=== PATIENT | female | born 1950 | race Caucasian/White ===

== ENCOUNTER 2023-01-15 09:50 | Outpatient (CLI) | payer OTHER, SELFPAY | END 2023-01-15 09:51 | disposition home or self-care (01) | PROVIDERS: PCP Neuromusculoskeletal Medicine & OMM; Visit Provider Neuromusculoskeletal Medicine & OMM | DX: R94.31 Abnormal electrocardiogram [ECG] [EKG] (principal); I34.0 Nonrheumatic mitral (valve) insufficiency | CPT/HCPCS: 93306 ==

== ENCOUNTER 2023-10-15 18:37 | Emergency (ER) | payer OTHER, SELFPAY ==
[2023-10-15 18:44] VITALS: BP 125/60; PULSE 86; RESP 24; TEMP 36.3; O2SAT 98; BMI 19.1
--- NOTE | 2023-10-15 19:00 | ED.GENADULT ---
HPI - General Adult General Chief complaint: Arrhythmia/Palpitations Stated complaint: elevated HR Time Seen by Provider: 10/15/23 18:41 History of Present Illness HPI narrative: reports that she has been restricting her diet since Wednesday night due to having pain on the right Abd-back area. she did this as she was thinking it was her gallbladder. today noticed that her heart was beating fast with palpitations was greater than 146 per pulse oximeter. felt that it was irregular. did feel lightheaded at that time. is concerned about having gallbladder problems or electrolyte imbalance. 72-year-old woman presenting to the emergency department with concern of rapid heart rate. She has been struggling with mental health and has been experiencing some weight loss. Over the last 4 days has been having right upper abdominal area she says right up under her ribs and then radiating to the back. She did some reading thinking maybe it was her gallbladder. Did finally take some ibuprofen last night and woke feeling much better. Today though her heart then suddenly began beating really fast. Wondered if it might be irregular. [place] little lightheaded. Does endorse underlying history of PTSD as well. Family member suggested that might have electrolytes being off as well considering that she had been restricting her diet. No fever. No vomiting. No diarrhea. Related Data Home Medications ?Medication ?Instructions ?Recorded ?Confirmed Natural Remedies PO DAILY 01/26/23 magnesium oxide 400 mg (241.3 mg 200 mg PO DAILY 01/26/23 01/26/23 magnesium) tablet vitamin B complex-folic acid 0.4 1 tab PO QDAY 01/26/23 01/26/23 mg tablet (B Complex 1 (with folic acid)) Allergies Allergy/AdvReac Type Severity Reaction Status Date / Time coffee (Coffea arabica) Allergy Intermediate Verified 01/26/23 10:57 casein Allergy Verified 01/26/23 10:57 gluten Allergy Verified 01/26/23 10:57 Review of Systems Status of ROS: Reports: 6 or more systems reviewed and unremarkable except as noted in History and below [facility] Surgical History History of phacoemulsification of cataract of both eyes with intraocular lens implantation ?Z98.41 - Cataract extraction status, right eye (ICD-10) ?Z98.42 - Cataract extraction status, left eye (ICD-10) ?Z96.1 - Presence of intraocular lens (ICD-10) Family History Mother Heart failure Fragile X syndrome Social History What is your current living situation?: I presently have a place to live Problems where you live: no known problems In the past 12 months, utilities in danger of being shut off: no In past 12 months, lack of transportation kept you from medical appts, meetings, work, or getting things needed for daily living: no In the past 12 mos, have been you worried that your food would run out before you had money to buy more?: never true In the past 12 mos, the food you bought just didn't last and you didn't have money to buy more?: never true Non-prescribed substance use: denies use How often does anyone, including family, friends and others, physically hurt you: never How often does anyone, including family, friends and others, insult or talk down to you: never How often does anyone, including family, friends and others, threaten you with harm: never How often does anyone, including family, friends and others, scream or curse at you: never Little interest or pleasure in doing things: not at all Feeling down, depressed, or hopeless: not at all Exam Narrative: Exam Narrative: Pleasant. Appears tired. Thin. Skin is warm and dry. Well-perfused peripherally without edema. Oropharynx is moist. Lungs are clear. Heart in regular rate and rhythm without murmur rub or gallop. Abdomen is soft. No masses appreciated. She is moderately tender in the right upper abdomen under the rib margin. Moving all extremities without difficulty. Const: Vital Signs, click to edit/add: Vital Signs - 24 hr 10/15/23 18:44 10/15/23 20:04 10/15/23 20:15 Temperature 97.3 F L Pulse Rate 71 72 Pulse Rate [Pulse Oximeter] 86 Respiratory Rate 24 Blood Pressure [Le ft Upper Arm] 125/60 Pulse Oximetry 98 98 98 Oxygen Delivery Me thod Room Air 10/15/23 20:30 10/15/23 20:45 10/15/23 21:00 Temperature Pulse Rate 71 70 71 Pulse Rate [Pulse Oximeter] Respiratory Rate Blood Pressure [Le ft Upper Arm] Pulse Oximetry 98 98 97 Oxygen Delivery Me thod Documenting provider has reviewed patient's vital signs: yes Course Vital Signs Vital signs: Initial Vital Signs Temperature 97.3 F L 10/15/23 18:44 Temperature Source Temporal Artery Scan 10/15/23 18:44 Pulse Rate 86 10/15/23 18:44 Pulse Rhythm Regular 10/15/23 18:44 Respiratory Rate 24 10/15/23 18:44 Blood Pressure 125/60 10/15/23 18:44 Blood Pressure Mean 81 10/15/23 18:44 Blood Pressure Position Supine 10/15/23 18:44 Pulse Oximetry 98 10/15/23 18:44 Oxygen Delivery Method Room Air 10/15/23 18:44 Vital Signs Temperature 97.3 F L 10/15/23 18:44 Pulse Rate 86 10/15/23 18:44 Respiratory Rate 24 10/15/23 18:44 Blood Pressure 125/60 10/15/23 18:44 Pulse Oximetry 98 10/15/23 18:44 Oxygen Delivery Method Room Air 10/15/23 18:44 Temperature 97.3 F L 10/15/23 18:44 Pulse Rate 71 10/15/23 21:00 Respiratory Rate 24 10/15/23 18:44 Blood Pressure 125/60 10/15/23 18:44 Pulse Oximetry 97 10/15/23 21:00 Oxygen Delivery Method Room Air 10/15/23 18:44 Medications Administered Medications: Discontinued Medications Generic Name Dose Route Start Last Admin Trade Name Freq PRN Reason Stop Dose Admin Sodium Chloride 1,000 mls @ 1,000 mls/hr 10/15/23 19:06 10/15/23 21:00 0.9 % Sodium Chloride 1000 Ml IV 10/15/23 20:05 Infused .Q1H ONE Infusion Medical Decision Making MDM Narrative Medical decision making narrative: Certainly could have underlying gallbladder disease which has improved at this point. May have had an attack of anxiety or some tachyarrhythmia. Will monitor for time. Can certainly check electrolytes. Weight loss over time might have predisposed to formation of some gallstones. Discussed findings of ultrasound with application release manager. No evidence of gallbladder disease. See radiology over-read for further details Right upper quadrant abdomen pain. TECHNIQUE: Ultrasound abdomen limited. Sonographic images of the right upper quadrant were obtained using whalen-scale and color Doppler images. COMPARISON: None. FINDINGS: Liver: Normal in size and echotexture. No suspicious masses. No intrahepatic biliary dilatation. Gallbladder: No stones or sludge. Normal wall thickness. No pericholecystic fluid. Common bile duct: 4 mm. Pancreas: Unremarkable. Right kidney: Normal in size. Mildly heterogeneous echotexture. Normal cortex. No suspicious masses, stones, or hydronephrosis. Vasculature: Proximal abdominal aorta and IVC are unremarkable. IMPRESSION: No acute explanation for abdominal pain. Mildly heterogeneous appearances renal cortex, which can be seen with medical renal disease. Discussed findings with Ms. Sherwood and her daughter. She does not have evidence on her labs of renal disease Later is wondering about changes that may have occurred in her EKG over time whether not they have improved. She is here with and I do review priors. There subtle differences of undetermined significance. Re-examination also with some reproducible right flank and rib area discomfort to palpation. Specific points of discomfort. This is on the muscle/ribs that reproduces this discomfort. Perhaps there is more musculoskeletal origin than initially realized. Lack of chronicity suggests against more indolent process. I suppose pathologic fracture could be evident. This might need further evaluation See patient discharge plan for further discussion Medical Records Medical records reviewed: Yes I reviewed the patient's medical records Lab Data Lab results reviewed: Yes I reviewed the patient's lab results Labs: Lab Results 10/15/23 10/15/23 Range/Units 19:40 21:05 WBC 5.08 (4.50-11.00) K/uL RBC 3.41 L (4.00-5.20) m/uL Hgb 9.9 L (12.0-16.0) gm/dL Hct 31.3 L (33.0-51.0) % MCV 92 (80-100) fL MCH 29 (26-34) pg MCHC 32 (32-36) gm/dL RDW Coeff of Meghan 13.0 (11.5-15.5) % Plt Count 132 L (140-440) K/uL Neut % (Auto) 39.9 L (42.0-72.0) % Lymph % (Auto) 20.7 (20-44) % [place] % (Auto) 37.2 H (0.0-11.0) % Eos % (Auto) 0.4 (0.0-7.0) % Baso % (Auto) 1.6 (0.0-3.0) % Neut # (Auto) 2.00 (1.7-7.0) K/uL Lymph # (Auto) 1.05 (0.90-2.90) K/uL [place] # (Auto) 1.90 H (0.00-0.90) K/UL Eos # (Auto) 0.02 (0.00-0.50) K/uL Baso # (Auto) 0.08 (0.00-0.30) K/uL Abs Immat Gran (auto) 0.01 (0.00-0.30) K/uL Imm/Tot Granulo (auto) 0.2 % Sodium 135 (135-149) mmol/L Potassium 4.2 (3.6-5.1) mmol/L Chloride 104 (96-114) mmol/L Carbon Dioxide 26 (20-32) mmol/L Anion Gap 5 L (7-15) mEq/L BUN 14 (7-30) mg/dL Creatinine 0.6 (0.5-1.5) mg/dL Estimated Creat Clear 43.12 Estimated GFR 94 ml/min Glucose 124 H (60-115) mg/dL Lactate 0.8 (0.5-1.9) mmol/L Calcium 8.4 (8.4-10.6) mg/dL Magnesium 2.2 (1.5-2.6) mg/dL Total Bilirubin 0.5 (0.1-1.5) mg/dL Direct Bilirubin 0.3 (0.0-0.5) mg/dL AST 26 (12-35) U/L ALT 18 (4-35) U/L Alkaline Phosphatase 42 (40-150) U/L C-Reactive Protein < 0.5 L (0.5-1.0) mg/dL Total Protein 8.1 (6.0-8.3) g/dL Albumin 4.0 (3.3-5.0) g/dL Lipase 158 (23-300) U/L Urine Color Yellow (Yellow) Urine Appearance Clear (Clear) Urine pH 7.0 (5.0-8.5) Ur Specific [place] 1.010 (1.000-1.030) Urine Protein Negative (Negative) Urine Glucose (UA) Negative (Negative) Urine Ketones Negative (Negative) Urine Blood Negative (Negative) Urine Nitrite Negative (Negative) Urine Bilirubin Negative (Negative) Urine Urobilinogen 0.2 (0.2-1.0) Ur Leukocyte Esterase Negative (Negative) Urine RBC 0-2 (0-2) Urine WBC 0-2 (0-5) Ur Squamous Epith Cells None (None-Few) Urine Bacteria Few A (None) Ethyl Alcohol < 0.01 L (0.01-0.03) % ECG Data Attestation: I personally reviewed and interpreted this ECG as follows: (Normal sinus rhythm at rate of 86. I do not appreciate acute ischemic changes. Very similar to prior.) Discharge Plan Discharge Clinical Impression: Abdominal pain, Flank pain, Anemia Patient Disposition: Home w/ Parent or Adult Condition: Stable Additional Instructions: As I said, I am not sure what caused your discomfort recently. You seem to have some musculoskeletal pain yet. If these discomforts continue for another week I would be re-evaluated. Return for marked increase in persistent pain, increasing shortness of breath, associated fever. Consider scheduling a follow-up with your primary care provider next week for re-evaluation. Prescriptions: No Action magnesium oxide 400 mg (241.3 mg magnesium) tablet 200 mg PO DAILY vitamin B complex-folic acid [B Complex 1 (with folic acid)] 0.4 mg tablet 1 tab PO QDAY Natural Remedies PO DAILY Follow Up/Referrals: Carlos Ash DO [Primary Care Provider] - Stand Alone Forms: [employer] Info Instructions
--- NOTE | 2023-10-15 19:06 | CRLHL7_ITS ---
For Patients: As a result of the Century Cures Act, medical imaging exams and procedure reports are released immediately into your electronic medical record. You may view this report before your referring provider. If you have questions, please contact your health care provider. INDICATION: Right upper quadrant abdomen pain. TECHNIQUE: Ultrasound abdomen limited. Sonographic images of the right upper quadrant were obtained using whalen-scale and color Doppler images. COMPARISON: None. FINDINGS: Liver: Normal in size and echotexture. No suspicious masses. No intrahepatic biliary dilatation. Gallbladder: No stones or sludge. Normal wall thickness. No pericholecystic fluid. Common bile duct: 4 mm. Pancreas: Unremarkable. Right kidney: Normal in size. Mildly heterogeneous echotexture. Normal cortex. No suspicious masses, stones, or hydronephrosis. Vasculature: Proximal abdominal aorta and IVC are unremarkable. IMPRESSION: No acute explanation for abdominal pain. Mildly heterogeneous appearances renal cortex, which can be seen with medical renal disease. Dictated by Merly Cummings MD @ 10/15/2023 7:59:22 PM (Electronically Signed)
[2023-10-15] MEDS: 0.9 % SODIUM CHLORIDE 1000 ml 1,000 ML IV (19:48)
[2023-10-15 19:51] LABS: Lactate* 0.8 mmol/L (0.5-1.9)
[2023-10-15 19:53] LABS: Basophils Absolute Auto 0.08 K/uL (0.00-0.30); Basophils Percent Auto 1.6 % (0.0-3.0); Eosinophils Absolute Auto 0.02 K/uL (0.00-0.50); Eosinophils Percent Auto 0.4 % (0.0-7.0); Hematocrit 31.3 % (33.0-51.0); Hemoglobin* 9.9 gm/dL (12.0-16.0); Immature Granulocytes Abs Auto 0.01 K/uL (0.00-0.30); Immature Granulocytes Pct Auto 0.2 %; Lymphocytes Absolute Auto 1.05 K/uL (0.90-2.90); Lymphocytes Percent Auto 20.7 % (20-44); Mean Corpuscular HGB Conc 32 gm/dL (32-36); Mean Corpuscular Hemoglobin 29 pg (26-34); Mean Corpuscular Volume 92 fL (80-100); Monocytes Percent Auto 37.2 % (0.0-11.0); Neutrophils Percent Auto 39.9 % (42.0-72.0); Platelet Count* 132 K/uL (140-440); Red Blood Count 3.41 m/uL (4.00-5.20); White Blood Count* 5.08 K/uL (4.50-11.00)
[2023-10-15 19:54] LABS: Slide Review Reflex No
[2023-10-15 20:04] VITALS: PULSE 71; O2SAT 98
[2023-10-15 20:11] LABS: Chloride* 104 mmol/L (96-114); Sodium* 135 mmol/L (135-149)
[2023-10-15 20:12] LABS: Potassium* 4.2 mmol/L (3.6-5.1)
[2023-10-15 20:13] LABS: Creatinine* 0.6 mg/dL (0.5-1.5); Est. Creatinine Clearance* 43.12; Estimated Glomerular Filt Rate 94 ml/min
[2023-10-15 20:14] LABS: Alanine Aminotransferase* 18 U/L (4-35); Alkaline Phosphatase* 42 U/L (40-150); Anion Gap 5 mEq/L (7-15); Aspartate Amino Transferase* 26 U/L (12-35); Bilirubin Direct* 0.3 mg/dL (0.0-0.5); Bilirubin Total* 0.5 mg/dL (0.1-1.5); Blood Urea Nitrogen* 14 mg/dL (7-30); Calcium* 8.4 mg/dL (8.4-10.6); Carbon Dioxide* 26 mmol/L (20-32); Glucose* 124 mg/dL (60-115); Lipase* 158 U/L (23-300); Total Protein* 8.1 g/dL (6.0-8.3)
[2023-10-15 20:15] VITALS: PULSE 72; O2SAT 98
[2023-10-15 20:15] LABS: Magnesium* 2.2 mg/dL (1.5-2.6)
[2023-10-15 20:16] LABS: Ethanol* < 0.01 % (0.01-0.03)
[2023-10-15 20:18] LABS: C Reactive Protein* < 0.5 mg/dL (0.5-1.0)
[2023-10-15 20:30] VITALS: PULSE 71; O2SAT 98
[2023-10-15 20:45] VITALS: PULSE 70; O2SAT 98
[2023-10-15 21:00] VITALS: PULSE 71; O2SAT 97
[2023-10-15 21:10] LABS: Appearance Urine Clear (Clear); Bilirubin Urine Negative (Negative); Blood Urine Negative (Negative); Color Urine Yellow (Yellow); Glucose Urine Negative (Negative); Ketones Urine Negative (Negative); Leukocyte Esterase Urine Negative (Negative); Nitrite Urine Negative (Negative); Protein Urine Negative (Negative); Urobilinogen Urine 0.2 (0.2-1.0)
[2023-10-15 21:19] LABS: Bacteria Urine Few; RBC Urine 0-2 (0-2); WBC Urine 0-2 (0-5)
== END 2023-10-15 22:18 | disposition home or self-care (01) ==
PROVIDERS: Emergency Provider Family Medicine; PCP Neuromusculoskeletal Medicine & OMM
DX: R10.9 Unspecified abdominal pain (principal); D64.9 Anemia, unspecified
CPT/HCPCS: 36415; 76705; 80048; 80076; 81001; 82077; 83605; 83690; 83735; 85025; 86140; 87086; 93005; 96360; 99284; J7030

== ENCOUNTER 2024-08-16 12:48 | Outpatient (CLI) | payer OTHER, SELFPAY ==
--- NOTE | 2024-08-16 13:00 | CRLHL7_ITS ---
For Patients: As a result of the Century Cures Act, medical imaging exams and procedure reports are released immediately into your electronic medical record. You may view this report before your referring provider. If you have questions, please contact your health care provider. Indication: LLQ ABD SWELLING, MASS AND LUMP Technique: Noncontrast CT abdomen and pelvis. Patient declined oral or IV contrast. Please note that all CT scans at this facility use dose modulation, iterative reconstruction, and/or weight-based dosing when appropriate to reduce radiation dose to as low as reasonably achievable. Comparison: Ultrasound right upper quadrant 10/15/2023 Findings: There is a large solid mass within the left side of the abdomen which measures approximately 20.7 x 13.3 x 6.4 cm in the craniocaudad, transverse and anterior-posterior dimensions respectively. Hypodense lesion within this mass measures 1.5 cm. No surrounding edema or fluid. This is located within the mid left abdomen extending into the left side of the pelvis. This apparently represents the spleen. Additional splenule noted posteriorly which measures 1.9 cm. The kidneys are unremarkable as are the adrenal glands. Pancreas normal. Noncontrast enhanced liver is unremarkable. Normal gallbladder. Mild scarring in the right anterior lung base. Atherosclerotic changes. Evaluation of the pelvis is difficult without intravenous contrast. Normal appendix. No bowel obstruction. Likely incidental bone island within the L2 vertebral body. Impression: Limited exam due to the absence of intravenous contrast. 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 Confirmation with contrast-enhanced imaging recommended. Please note that all CT scans at this facility use dose modulation, iterative reconstruction, and/or weight-based dosing when appropriate to reduce radiation dose to as low as reasonably achievable. Dictated by Toby Ordonez MD @ 08/16/2024 2:35:48 PM (Electronically Signed)
== END 2024-08-16 12:49 | disposition home or self-care (01) ==
LOC: CT 12:49
PROVIDERS: PCP Neuromusculoskeletal Medicine & OMM; Visit Provider Neuromusculoskeletal Medicine & OMM
DX: R19.04 Left lower quadrant abdominal swelling, mass and lump (principal)
CPT/HCPCS: 74176

== ENCOUNTER 2024-09-06 15:58 | Outpatient (CLI) | payer OTHER, SELFPAY ==
[2024-09-06 16:30] LABS: Creatinine* 0.8 mg/dL (0.5-1.5); Estimated Glomerular Filt Rate 77 ml/min
--- NOTE | 2024-09-06 16:45 | CRLHL7_ITS ---
For Patients: As a result of the 21st Century Cures Act, medical imaging exams and procedure reports are released immediately into your electronic medical record. You may view this report before your referring provider. If you have questions, please contact your health care provider. Indication: [id number] SWELLING ON LEFT SIDE, MASS AND LUMP, PAIN, X 2 MONTHS Technique: CT Abdomen/Pelvis 61CC ISOVUE 370 intravenous contrast Please note that all CT scans at this facility use dose modulation, iterative reconstruction, and/or weight-based dosing when appropriate to reduce radiation dose to as low as reasonably achievable. Comparison: 08/16/2024 Findings: Small incidental blebs are present within the right lung base. No pleural effusion. Mild subsegmental linear atelectasis or scarring in the right middle lobe. The liver measures 19.3 cm. No intrahepatic mass. Gallbladder is incompletely distended. No biliary obstruction. No calcified gallstones. Pancreas is unremarkable. Normal adrenal glands. Kidneys are normal. The spleen is located within the mid left abdomen and is enlarged and measures 20.1 x 14.8 x 7.4 cm in the craniocaudad, transverse and anterior-posterior dimensions, respectively. An incidental splenic cyst is present which measures 1.3 cm. No ascites. Atherosclerotic changes. No aneurysm. Normal patency of the splenic vein and portal vein. Mild splenic hilum varices noted. No adenopathy. Bladder incompletely distended. Uterus unremarkable. No adnexal mass. No bowel obstruction or free air. No abscess. Incidental bone island within the inferior endplate of L2. No vertebral body compression fracture. Impression: Ectopic spleen. Marked enlargement of the spleen measuring up to 20.1 cm. Incidental intra splenic cyst. Hepatomegaly. No ascites. Please note that all CT scans at this facility use dose modulation, iterative reconstruction, and/or weight-based dosing when appropriate to reduce radiation dose to as low as reasonably achievable. Dictated by Toby Ordonez MD @ 09/07/2024 8:27:41 AM (Electronically Signed)
== END 2024-09-06 15:59 | disposition home or self-care (01) ==
LOC: CT 15:58
PROVIDERS: PCP Neuromusculoskeletal Medicine & OMM; Visit Provider Neuromusculoskeletal Medicine & OMM
DX: R19.00 Intra-abdominal and pelvic swelling, mass and lump, unspecified site (principal); R16.2 Hepatomegaly with splenomegaly, not elsewhere classified; D73.4 Cyst of spleen
CPT/HCPCS: 36415; 74177; 82565; Q9967

== ENCOUNTER 2025-02-18 08:13 | Emergency (ER) | payer OTHER, SELFPAY ==
--- OUTSIDE RECORDS SUMMARY | 2025-02-18 08:15 | XMS_ITS | Clinical Summary ---
Author Organization [facility] Address [address] [place] [id number] Care Team Providers Care Electric Meter Tester Name Role Phone Meghna Loving DO Primary Care Provider [phone] Allergies Active AllergyReactionsCriticalityNoted PmpiCwmwbwebXotybwYzay15/03/2017 Bumps on stomach Medications MedicationSigDispense QuantityRefillsLast FilledStart DateEnd DateStatus vitamin B complex (B COMPLEX 1) tablet Take 1 tablet by mouth. [id number] Active Problems ProblemNoted DateDiagnosed NocgWirbqisxpex42/28/2011PTSD (post-traumatic stress disorder)02/06/2010nemia, avzywrzmcbl76/07/2010 Resolved Problems ProblemNoted DateDiagnosed DateResolved JbboZovcrmhzkmvw59 Ffnztowntdi03Community acquired Tvoooqf58CoughThrombocytopenia, evbhpywxulg55Chest pain, wkfwhdvybqc73 Tyanvpsmeaz13 Family History Medical HistoryRelationNameCommentsFragile X syndromeMotherHeart failureMother RelationNameStatusCommentsFatherDeceased (Age 90)Hospital acquired infection MotherDeceased (Age 84)22 children Social History Tobacco UseTypesPacks/DayYears UsedDateSmoking Tobacco: NeverSmokeless Tobacco: Never Tobacco Cessation:Counseling Given: Yes Alcohol UseStandard Drinks/WeekCommentsNo0 (1 standard drink = 0.6 oz pure alcohol)Social ConnectionsAnswerDate RecordedDo you often feel lonely or isolated from those around you?Financial Resource StrainAnswerDate RecordedDifficulty of Paying Living Dliorhhz715/16/2025Difficulty of Paying Living ExpensesNot on file06/14/2024Food InsecurityAnswerDate RecordedDo you worry your food will run out before you are able to buy more? Transportation NeedsAnswerDate RecordedDoes lack of transportation keep you from medical appointments?Does lack of transportation keep you from work, meetings or getting things that you need?Housing StabilityAnswerDate RecordedWhat is your housing situation today?UtilitiesAnswerDate RecordedDo you have trouble paying for utilities (for example, heat, electricity, water, phone)?CommentsNoSex and Gender InformationValueDate RecordedSex Assigned at BirthNot on fileLegal SexFemale 03/14/2012 7:43 AM CSTGender IdentityNot on fileSexual OrientationNot on file Last Filed Vital Signs Vital SignReadingTime TakenCommentsBlood Kyyjnqtb994/6307 11:20 AM CDT Dfvuc379709/11/2024 11:20 AM UJOWtwmqkivqhf73.7 ??C (98.1 ??F)01/14/2023 1:05 PM CSTRespiratory Cwrm407603/16/2022 4:15 PM CSTOxygen Dwmaknpwqj40%09/11/2024 11:20 AM CDTInhaled Oxygen Concentration--Fxbzru42.1 kg (119 lb 3.2 oz)09/11/2024 11:20 AM XETVqzymt347.5 cm (5' 7.5)01/14/2023 1:05 PM CSTBody Mass Index18.39 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 Plan of Treatment Health MaintenanceDue DateLast DoneCommentsTetanus lmlpzyx6810/23/1959Hepatitis C screening for age 18-7910/22/1966Pneumococcal series for age 50+ (1 of 2 - PCV) 10/23/1967Zoster (shingles) series for age 50+ (1 of 2)1998DEXA/DXA scan for age 65+2013Medicare Wellness for age 65+2013Depression screening for age 12+BMI (ht and wt on same day) for age 18+04/26/2020 04/26/2019, 10/01/2016RSV vaccine for adults or (1 - 1-dose 75+ series)4COVID-19 vaccine series (1 - 2024- season)2024Influenza Vaccine (#1)2024Hepatitis B series for 19+Aged OutNo longer eligible based on patient's age to complete this topic Insurance * Guarantor: Heidi Sherwood TypeRelation to PatientDate of BirthPhone Billing AddressPersonal/WhcnajLbff01/24/1951 [address] [place] [address] [place] [phone] Advance Directives * Full Code (Latest Code Status on File) Date ActivatedDate CkkfljrennmWesnowch10/6/2010 11:32 PM02/09/2010 2:19 PM Care Teams Team MemberRelationshipSpecialtyStart DateEnd Date Meghna Loving DO [address] [place] [address] PCP - GeneralFamily Practice06/28/24
[2025-02-18 08:23] VITALS: BP 132/74; PULSE 112; RESP 18; TEMP 37.8; O2SAT 93; BMI 18.1
--- NOTE | 2025-02-18 08:43 | CRLHL7_ITS ---
For Patients: As a result of the Century Cures Act, medical imaging exams and procedure reports are released immediately into your electronic medical record. You may view this report before your referring provider. If you have questions, please contact your health care provider. INDICATION: Cough TECHNIQUE: Chest 2 views. COMPARISON: Chest radiograph 02/03/2010. FINDINGS: Cardiovascular and mediastinum: Heart size is normal. Unremarkable mediastinum. Lungs and pleural spaces: No focal consolidation. No pneumothorax or pleural effusion. Minimal hyperdensity in the left lower lobe, which is unchanged since 2009 and may represent a calcified granuloma. Bones and soft tissues: Calcific tendinosis of the right supraspinatus. IMPRESSION: No acute findings. Dictated by Merly Cummings MD @ 02/18/2025 9:11:12 AM (Electronically Signed)
--- NOTE | 2025-02-18 08:44 | ED.FEVER ---
HPI - Fever General Chief Complaint: Fever Stated Complaint: Fever Time Seen by Provider: 02/18/25 08:36 History of Present Illness HPI Narrative: Patient is 74-year-old woman with a chronic monocytosis who presents with cough and congestion for 5 days. Her symptoms started when she flew back from [place]. She is not eating and drinking adequately and feels somewhat dehydrated. Her cough is productive of yellow sputum. She has very strong feelings about vaccinations as not vaccinated for influenza or COVID. No other significant symptoms. No rash chest pain orthopnea PND dysuria or abdominal pain. Related Data Home Medications ?Medication ?Instructions ?Recorded ?Confirmed Natural Remedies PO DAILY 01/26/23 01/15/25 Allergies Allergy/AdvReac Type Severity Reaction Status Date / Time coffee (Coffea arabica) Allergy Intermediate Verified 01/15/25 14:20 casein Allergy Verified 01/15/25 14:20 gluten Allergy Verified 01/15/25 14:20 Review of Systems Status of ROS Reports: 10 or more systems reviewed and unremarkable except as noted in History and below PFSH PFSH Surgical History History of phacoemulsification of cataract of both eyes with intraocular lens implantation ?Z98.41 - Cataract extraction status, right eye (ICD-10) ?Z98.42 - Cataract extraction status, left eye (ICD-10) ?Z96.1 - Presence of intraocular lens (ICD-10) Family History Mother Heart failure Fragile X syndrome Social History What is your current living situation?: I presently have a place to live Problems where you live: no known problems In the past 12 months, utilities in danger of being shut off: no In past 12 months, lack of transportation kept you from medical appts, meetings, work, or getting things needed for daily living: no In the past 12 mos, have been you worried that your food would run out before you had money to buy more?: never true In the past 12 mos, the food you bought just didn't last and you didn't have money to buy more?: never true Non-prescribed substance use: denies use How often does anyone, including family, friends and others, physically hurt you: never How often does anyone, including family, friends and others, insult or talk down to you: never How often does anyone, including family, friends and others, threaten you with harm: never How often does anyone, including family, friends and others, scream or curse at you: never Exam Narrative Exam Narrative: EXAM GENERAL: Patient appears comfortable and well. EYES: No scleral icterus. ENT: Tympanic membranes and oropharynx normal. THYROID: no thyroid nodules or thyromegaly. LYMPH: No supraclavicular or cervical lymphadenopathy. SKIN: Visible skin seen during exam normal or with benign process only. EXT: No dependent lower extremity pedal edema. HEART: Regular rate and rhythm with no murmurs, rubs, or gallops. LUNGS: Scattered rhonchi in the lungs bilaterally. ABD: Soft, non tender, non distended. PSYCH: Good eye contact, speech is not pressured. Const Vital Signs, click to edit/add: Vital Signs - 24 hr 02/18/25 08:23 Temperature 100.1 F H Pulse Rate [Pulse Oximeter] 112 H Respiratory Rate 18 Blood Pressure [Right Upper Arm] 132/74 Pulse Oximetry 93 Oxygen Delivery Method Room Air Course Course ED Course: Patient seen examined. Triple swab CBC comprehensive metabolic panel blood culture chest x-ray procalcitonin pending. Vital Signs Vital signs: Initial Vital Signs Temperature 100.1 F H 02/18/25 08:23 Temperature Source Temporal Artery Scan 02/18/25 08:23 Pulse Rate 112 H 02/18/25 08:23 Respiratory Rate 18 02/18/25 08:23 Blood Pressure 132/74 02/18/25 08:23 Blood Pressure Mean 93 02/18/25 08:23 Blood Pressure Position Sitting 02/18/25 08:23 Pulse Oximetry 93 02/18/25 08:23 Oxygen Delivery Method Room Air 02/18/25 08:23 Vital Signs Temperature 100.1 F H 02/18/25 08:23 Pulse Rate 112 H 02/18/25 08:23 Respiratory Rate 18 02/18/25 08:23 Blood Pressure 132/74 02/18/25 08:23 Pulse Oximetry 93 02/18/25 08:23 Oxygen Delivery Method Room Air 02/18/25 08:23 Temperature 100.1 F H 02/18/25 08:23 Pulse Rate 112 H 02/18/25 08:23 Respiratory Rate 18 02/18/25 08:23 Blood Pressure 132/74 02/18/25 08:23 Pulse Oximetry 93 02/18/25 08:23 Oxygen Delivery Method Room Air 02/18/25 08:23 MDM - Fever MDM Narrative Medical decision making narrative: Patient is a 74-year-old woman who comes in today with a several-day history of cough. She has had no fevers no chills. She recently returned from a air flight. Workup shows a negative chest x-ray negative viral swab unremarkable electrolytes and CBC with exception of chronic monocytosis and anemia. She this time will be treated for bronchitis. Due to her comorbidities I did treated with Z-Wil as directed. Tylenol Motrin rest fluids follow-up with primary care as needed. Lab Data Labs: Lab Results 02/18/25 02/18/25 Range/Units 08:45 08:55 WBC 6.98 (4.50-11.00) K/uL RBC 3.25 L (4.00-5.20) m/uL Hgb 9.4 L (12.0-16.0) gm/dL Hct 29.1 L (33.0-51.0) % MCV 90 (80-100) fL MCH 29 (26-34) pg MCHC 32 (32-36) gm/dL RDW Coeff of Meghan 13.0 (11.5-15.5) % Plt Count 132 L (140-440) K/uL Neut % (Auto) 28.7 L (42.0-72.0) % Lymph % (Auto) 16.8 L (20-44) % [place] % (Auto) 52.9 H (0.0-11.0) % Eos % (Auto) 0.1 (0.0-7.0) % Baso % (Auto) 0.9 (0.0-3.0) % Neut # (Auto) 2.00 (1.7-7.0) K/uL Lymph # (Auto) 1.20 (0.90-2.90) K/uL [place] # (Auto) 3.70 H (0.00-0.90) K/UL Eos # (Auto) 0.01 (0.00-0.50) K/uL Baso # (Auto) 0.06 (0.00-0.30) K/uL Abs Immat Gran (auto) 0.04 (0.00-0.30) K/uL Imm/Tot Granulo (auto) 0.6 % Sodium 132 L (135-149) mmol/L Potassium 3.6 (3.6-5.1) mmol/L Chloride 101 (96-114) mmol/L Carbon Dioxide 25 (20-32) mmol/L Anion Gap 6 L (7-15) mEq/L BUN 9 (7-30) mg/dL Creatinine 0.8 (0.5-1.5) mg/dL Estimated Creat Clear 40.10 Estimated GFR 76 ml/min Glucose 140 H (60-115) mg/dL Lactate 1.1 (0.5-1.9) mmol/L Calcium 8.1 L (8.4-10.6) mg/dL Total Bilirubin 1.0 (0.1-1.5) mg/dL AST 25 (12-35) U/L ALT 18 (4-35) U/L Alkaline Phosphatase 66 (40-150) U/L Total Protein 8.0 (6.0-8.3) g/dL Albumin 3.6 (3.3-5.0) g/dL Procalcitonin 0.10 (<0.50) ng/mL SARS-CoV-2 (PCR) Negative SARS-CoV-2 (Negative) Influenza Type A (PCR) Negative PCR FLU A (Negative) Influenza Type B (PCR) Negative PCR FLU B (Negative) RSV (PCR) Negative PCR RSV (Negative) Discharge Plan Discharge Clinical Impression: Bronchitis Patient Disposition: Home, Self-Care Condition: Stable Instructions: Acute Bronchitis (ED) Additional Instructions: Tylenol Motrin Rest Zithromax as directed Follow-up with your doctor as needed. Activity Level: No Restrictions Discharge Diet: Regular Prescriptions: No Action Natural Remedies PO DAILY Follow Up/Referrals: Carlos Ash DO [Primary Care Provider, Neuromuscular Medicine] Stand Alone Forms: MyHealth Info Instructions
[2025-02-18 09:05] LABS: Hematocrit* 29.1 % (33.0-51.0); Hemoglobin* 9.4 gm/dL (12.0-16.0); Immature Granulocytes Abs Auto 0.04 K/uL (0.00-0.30); Immature Granulocytes Pct Auto 0.6 %; Mean Corpuscular HGB Conc 32 gm/dL (32-36); Mean Corpuscular Hemoglobin 29 pg (26-34); Mean Corpuscular Volume 90 fL (80-100); RDW Coefficient of Variation % 13.0 % (11.5-15.5); Red Blood Count* 3.25 m/uL (4.00-5.20); White Blood Count* 6.98 K/uL (4.50-11.00)
[2025-02-18 09:06] LABS: Lactate* 1.1 mmol/L (0.5-1.9)
[2025-02-18 09:09] LABS: Lymphocytes Absolute Auto 1.20 K/uL (0.90-2.90); Slide Review Reflex Yes
[2025-02-18 09:26] LABS: Chloride* 101 mmol/L (96-114)
[2025-02-18 09:27] LABS: Albumin* 3.6 g/dL (3.3-5.0); Potassium* 3.6 mmol/L (3.6-5.1); Sodium* 132 mmol/L (135-149)
[2025-02-18 09:29] LABS: Blood Urea Nitrogen* 9 mg/dL (7-30); Creatinine* 0.8 mg/dL (0.5-1.5); Est. Creatinine Clearance* 40.10; Estimated Glomerular Filt Rate 76 ml/min
[2025-02-18 09:30] LABS: Alanine Aminotransferase* 18 U/L (4-35); Alkaline Phosphatase* 66 U/L (40-150); Anion Gap 6 mEq/L (7-15); Aspartate Amino Transferase* 25 U/L (12-35); Bilirubin Total* 1.0 mg/dL (0.1-1.5); Calcium* 8.1 mg/dL (8.4-10.6); Carbon Dioxide* 25 mmol/L (20-32); Glucose* 140 mg/dL (60-115); Total Protein* 8.0 g/dL (6.0-8.3)
[2025-02-18 09:32] LABS: PCR FLU A Negative PCR FLU A (Negative); PCR FLU B Negative PCR FLU B (Negative); PCR RSV Negative PCR RSV (Negative); SARS PCR* Negative SARS-CoV-2 (Negative)
[2025-02-18 09:47] LABS: Procalcitonin* 0.10 ng/mL (<0.50)
[2025-02-18 10:12] VITALS: BP 124/56; PULSE 101; RESP 18; O2SAT 93
[2025-02-18 10:13] LABS: Slide Review Acceptable Review (Acceptable)
== END 2025-02-18 10:15 | disposition home or self-care (01) ==
PROVIDERS: Emergency Provider Internal Medicine; PCP Neuromusculoskeletal Medicine & OMM
DX: J20.9 Acute bronchitis, unspecified (principal)
CPT/HCPCS: 36415; 71046; 80053; 83605; 84145; 85025; 87040; 87631; 99283; 99284